=== PATIENT | female | born 1940 | race Caucasian/White ===

== ENCOUNTER → 2016-08-17 | Outpatient (CLI) | payer MEDICARE | END | disposition home or self-care (01) | LOC: PCVCCLINIC 13:00 | PROVIDERS: ATTEND Internal Medicine Cardiovascular Disease | DX: I42.9 Cardiomyopathy, unspecified (principal); I10 Essential (primary) hypertension; I25.10 Atherosclerotic heart disease of native coronary artery without angina pectoris; R60.0 Localized edema | CPT/HCPCS: 93005; G0463 ==

== ENCOUNTER → 2016-12-08 | Outpatient (CLI) | payer MEDICARE | END | disposition home or self-care (01) | LOC: PCVCCLINIC 13:40 | PROVIDERS: ATTEND Internal Medicine Cardiovascular Disease | DX: I42.9 Cardiomyopathy, unspecified (principal); I25.10 Atherosclerotic heart disease of native coronary artery without angina pectoris; R60.9 Edema, unspecified; I10 Essential (primary) hypertension; E11.9 Type 2 diabetes mellitus without complications; Z79.84 Long term (current) use of oral hypoglycemic drugs | CPT/HCPCS: 93005; G0463 ==

== ENCOUNTER → 2017-12-07 | Outpatient (CLI) | payer MEDICARE | END | disposition home or self-care (01) | LOC: PCVCCLINIC 11:23 | DX: I42.9 Cardiomyopathy, unspecified (principal); I25.10 Atherosclerotic heart disease of native coronary artery without angina pectoris; I10 Essential (primary) hypertension; R06.00 Dyspnea, unspecified; R94.31 Abnormal electrocardiogram [ECG] [EKG]; Z79.84 Long term (current) use of oral hypoglycemic drugs; Z79.899 Other long term (current) drug therapy | CPT/HCPCS: 93005; G0463 ==

== ENCOUNTER → 2018-06-30 | Outpatient (CLI) | payer MEDICARE ==
[~2018-06-30] MED LIST: REGADENOSON 0.4 MG/5 ML DISP.SYRIN. IV ONE
--- NOTE | 2018-06-30 10:45 | PCVCIMAG ---
APPROVED REPORT Imaging Protocol: Rest Tc-99m/Stress Tc-99m 1 day Study performed: 06/30/2018 08:36:01 Indication: CAD , Cardiomyopathy Patient Location: Out-Patient Stress Nurse: Shanice Lacy RN, Susanne Gonzalez RN SC Tech:Anastasiia Shelli [facility] Ht: 5 ft 8 in Wt: 215 lbs BSA: 2.11 m2 HR: 71 bpm BP: 200/90 mmHg BMI: 32.68 Rhythm: Sinus Rhythm Medical History Medical History: HTN, Hyperlipidemia, Diabetic Insulin, CAD, LBBB, Age Medications: Eliquis, Coreg, [place], Insulin, Losartan, Metformin, Pravastatin Allergies: Xarelto Pretest Chest Pain Characteristics: No chest pain Exercise History: Sedentary Physical Disabilities: Back Meds Held (24 hrs): Coreg Resting Data Rest SPECT myocardial perfusion imaging was performed in supine position 45 minutes following the intravenous injection of 10.6 mCi of Tc-99m Sestamibi. Time of rest injection: 819 Date: 06/30/2018 Administration Route: IV Administration Site: Left Arm Pharmacologic Stress Pharmacologic stress test was performed by injecting Regadenoson 0.4 mg IV push over 10-15 seconds immediately followed by the intravenous injection of 34.2 mCi of Tc-99m Sestamibi. Time of stress injection: 924 Date: 06/30/2018 Administration Route: IV Administration Site: Left Arm Gated Stress SPECT was performed 45 minutes after stress injection. The images were gated to evaluate regional wall motion and calculate left ventricular ejection fraction. Stress Test Details Stress Test: Pharmacologic stress testing performed using 0.4 mg of regadenoson per 5 mL given IV over 10 seconds. Reason for pharmacologic stress test: physical limitation, back issues. HRMax Heart Rate (APMHR): 144 bpm Resting HR: 71 bpmTarget HR (85% APMHR): 122 bpm Max HR Achieved: 85 bpm % of APMHR: 59 Recovery HR: 78 bpm BP Resting BP: 200/90 mmHg Max BP: 209/96 mmHg Recovery BP: 177/81 mmHg ECG Resting ECG: Sinus Rhythm Stress ECG: Sinus Rhythm, LBBB ST Change: Nondiagnostic due to rate related LBBB Recovery ECG: Sinus Rhythm, LBBB Clinical Reason for Termination: Completed protocol Stress Symptoms: Dyspnea, Headache, Lightheaded Exercise duration: 0 min 55 sec Symptoms resolved with caffeine. Study Quality Study: Good Artifact: Mild Soft tissue attenuation artifact Study Data Post stress, the left ventricular ejection was 69%.. SSS: 1 SRS: 9 SDS: 0 TID = 1.10. Perfusion There is a small area of mildly reduced uptake in the mid segment of the anterior wall which is seen on the stress images as well as the resting images. This area thickens and moves normally and is most consistent with attenuation artifact. Wall Motion Normal left ventricular wall motion. Nuclear Conclusion ECG Findings: non-diagnostic Clinical Findings: non-diagnostic Nuclear Findings: negative for ischemia Exercise Capacity: not assessed Left Ventricular Function: normal Risk Study: low This study is of low probability for inducible ischemia or prior infarct. Normal global and segmental LV systolic function. Artifact: Mild Soft tissue attenuation artifact
== END | disposition home or self-care (01) ==
LOC: PCVCIMAG 07:52
PROVIDERS: ATTEND Internal Medicine Cardiovascular Disease
DX: I25.10 Atherosclerotic heart disease of native coronary artery without angina pectoris (principal); E11.9 Type 2 diabetes mellitus without complications; I10 Essential (primary) hypertension; I44.7 Left bundle-branch block, unspecified; I42.9 Cardiomyopathy, unspecified; E78.5 Hyperlipidemia, unspecified; R60.9 Edema, unspecified; Z79.4 Long term (current) use of insulin; Z79.82 Long term (current) use of aspirin; Z79.899 Other long term (current) drug therapy
CPT/HCPCS: 78452; 93017; A9500; G0463; J2785

== ENCOUNTER → 2018-12-29 | Outpatient (CLI) | payer MEDICARE | END | disposition home or self-care (01) | LOC: PCVCCLINIC 11:00 | PROVIDERS: ATTEND Internal Medicine Cardiovascular Disease | DX: I42.9 Cardiomyopathy, unspecified (principal); I25.10 Atherosclerotic heart disease of native coronary artery without angina pectoris; I10 Essential (primary) hypertension; E11.9 Type 2 diabetes mellitus without complications; Z88.8 Allergy status to other drugs, medicaments and biological substances | CPT/HCPCS: 93005; G0463 ==

== ENCOUNTER → 2019-03-06 | Outpatient (CLI) | payer MEDICARE | END | disposition home or self-care (01) | LOC: PCVCCLINIC 10:40 | PROVIDERS: ATTEND Internal Medicine Cardiovascular Disease | DX: I42.9 Cardiomyopathy, unspecified (principal); I10 Essential (primary) hypertension; E11.9 Type 2 diabetes mellitus without complications; Z88.8 Allergy status to other drugs, medicaments and biological substances | CPT/HCPCS: 93005; G0463 ==

== ENCOUNTER → 2019-07-06 | Outpatient (CLI) | payer MEDICARE ==
--- NOTE | 2019-07-06 10:44 | PCVCIMAG ---
APPROVED REPORT Study performed: 07/06/2019 09:19:23 EXAM: Comprehensive 2D, Doppler, and color-flow Echocardiogram Patient Location: Echo lab Room #: 2Status: routine BSA: 2.13 HR: 77 bpmBP: 134/60 mmHg Rhythm: NSR Other Information Study Quality: Fair Risk Factors: Cardiac Risk Factors: HTN, , Hyperlipidemia, DM Indications Cardiomyopathy Hypertension/HDD 2D Dimensions IVSd: 8.12 (7-11mm)LVOT Diam: 20.47 (18-24mm) LVDd: 42.01 mm PWd: 7.61 (7-11mm)Ascending Ao: 28.07 (22-36mm) LVDs: 26.38 (25-40mm) Left Atrium: 31.78 (27-40mm) Aortic Root: 25.62 mm LV Single Plane 4CH: 54.57 % LV Single Plane 2CH: 61.64 % Biplane EF: 58.0 % Volumes Left Atrial Volume (Systole) Single Plane 4CH: 39.58 mLSingle Plane 2CH: 38.27 mL Biplane LA Volume: 40.00 mLLA ESV Index: 19.00 mL/m2 Aortic Valve AoV Peak Florencio.: 1.25 m/s AO Peak Gr.: 6.25 mmHgLVOT Max P.36 mmHg LVOT Max V: 0.92 m/s ALEKS Vmax: 2.41 cm2 Mitral Valve E/A Ratio: 0.6 MV Decel. Time: 262.91 ms MV E Max Florencio.: 0.52 m/s MV A Florencio.: 0.86 m/s IVRT: 48.44 ms TDI E/Lateral E': 8.67E/Medial E': 10.40 Medial E' Florencio.: 0.05 m/s Lateral E' Florencio.: 0.06 m/s Pulmonary Valve PV Peak Florencio.: 0.79 m/sPV Peak Gr.: 2.51 mmHg Pulmonary Vein P Vein S: 0.73 m/sP Vein A: 0.40 m/s P Vein D: 0.39 m/sP Vein A Dur.: 93.4 msec P Vein S/D Ratio: 1.87 Tricuspid Valve TR Peak Florencio.: 1.19 m/s TR Peak Gr.: 5.68 mmHg TV Vmax: 0.54 m/sPA Pressure: 13.00 mmHg Left Ventricle The left ventricle is normal size. There is normal LV segmental wall motion. There is normal left ventricular wall thickness. Left ventricular systolic function is normal. The left ventricular ejection fraction is within the normal range. LVEF is 55-60%. Grade I - abnormal relaxation pattern. Right Ventricle The right ventricle is normal size. The right ventricular systolic function is normal. Atria The left atrium size is normal. The right atrium size is normal. Aortic Valve The aortic valve is normal in structure. No aortic regurgitation is present. There is no aortic valvular stenosis. Mitral Valve The mitral valve is normal in structure. There is no mitral valve regurgitation noted. No evidence of mitral valve stenosis. Tricuspid Valve The tricuspid valve is normal in structure. Trace to mild tricuspid regurgitation. Pulmonic Valve The pulmonary valve is normal in structure. There is no pulmonic valvular regurgitation. Great Vessels The aortic root is normal in size. The ascending aorta is normal in size. IVC is normal in size and collapses >50% with inspiration. Pericardium There is no pericardial effusion. There is no pleural effusion. <Conclusion> The left ventricle is normal size. There is normal left ventricular wall thickness. Left ventricular systolic function is normal. Grade I - abnormal relaxation pattern. The right ventricle is normal size. The left atrium size is normal. The aortic valve is normal in structure. There is no mitral valve regurgitation noted. Trace to mild tricuspid regurgitation.
== END | disposition home or self-care (01) ==
LOC: PCVCIMAG 09:16
PROVIDERS: ATTEND Internal Medicine Cardiovascular Disease
DX: I07.1 Rheumatic tricuspid insufficiency (principal); I25.10 Atherosclerotic heart disease of native coronary artery without angina pectoris; E11.9 Type 2 diabetes mellitus without complications; I10 Essential (primary) hypertension; I42.9 Cardiomyopathy, unspecified; Z96.653 Presence of artificial knee joint, bilateral; Z90.09 Acquired absence of other part of head and neck; Z88.8 Allergy status to other drugs, medicaments and biological substances; Z79.84 Long term (current) use of oral hypoglycemic drugs; Z79.899 Other long term (current) drug therapy; Z80.9 Family history of malignant neoplasm, unspecified; Z80.0 Family history of malignant neoplasm of digestive organs
CPT/HCPCS: 93005; 93306; G0463